=== PATIENT | female | born 1975 | race Asian ===

== ENCOUNTER 2018-11-17 06:12 | Day surgery (SDC) | payer SELFPAY ==
[2018-11-11 16:48] LABS: Absolute Lymphocytes (CBC) 3.1 K/uL (0.7-4.9); Basophils % 0.6 % (0-1.3); Hematocrit 42.3 % (36.0-45.0); Lymphocytes % 41.5 % (15.3-44.8); MPV 9.3 fL (7.6-11.3); RBC Red Blood Cell Count 5.31 M/uL (3.86-4.86)
[2018-11-11 16:49] LABS: Urine Appearance CLEAR; Urine Bilirubin NEGATIVE (NEG); Urine Blood NEGATIVE (NEG); Urine Color YELLOW; Urine Glucose 3+ (NEG); Urine Protein NEGATIVE (NEG); Urine Specific Gravity >=1.030 (1.005-1.030); Urine Urobilinogen 0.2 mg/dL (0.2-1.0)
[2018-11-11 16:51] LABS: Urine Microscopic Reflex NO UMIC
[2018-11-17] MEDS ORDERED: NA CHLORIDE 0.9% 1,000 ML ONE ×3 (06:37→08:30)
[2018-11-17] MEDS ORDERED: CEFAZOLIN/SWI 2gm 2 GM/20 ML SYR ONE (06:37)
[2018-11-17] MEDS ORDERED: SCOPOLAMINE HYDROBROMIDE PATCH TD ONE (06:37)
[2018-11-17] MEDS ORDERED: FENTANYL CITR 100 MCG/2 ML ONE ×2 (07:18→09:40)
[2018-11-17] MEDS ORDERED: PROPOFOL 200 MG/20 ML VIAL IV ONE (07:18)
[2018-11-17] MEDS ORDERED: ROCURONIUM 50 MG/5 ML VIAL IV ONE ×2 (07:18→08:48)
[2018-11-17] MEDS ORDERED: LIDOCAINE 2% MPF 5 ML VIAL ONE (07:19)
[2018-11-17] MEDS ORDERED: ONDANSETRON 4 MG/2 ML VIAL ONE (07:20)
[2018-11-17] MEDS ORDERED: MIDAZOLAM HCL 2 MG/2 ML INJ ONE (07:20)
[2018-11-17] MEDS ORDERED: Phenylephrine HCl 10 MG/ML 1 ML VIAL ONE (08:03)
[2018-11-17] MEDS ORDERED: EPHEDRINE SULF 50 MG/ML VIAL ONE (09:26)
[2018-11-17] MEDS ORDERED: KETOROLAC 30 MG/ML INJ ONE (10:11)
[2018-11-17] MEDS: NA CHLORIDE 0.9% 1,000 ML ONE ×2 (10:22→10:25)
[2018-11-17] MEDS ORDERED: GLYCOPYRROLATE 0.2 MG/ML SYR ONE (11:07)
[2018-11-17] MEDS ORDERED: NEOSTIGMINE 1 MG/ML -10 ML VIAL ONE (11:09)
[2018-11-17] MEDS: HYDROMORPHONE HCL 1 MG/ML INJ ONE ×2 (11:45→11:50)
[2018-11-17] MEDS ORDERED: IBUPROFEN 200 MG TAB PO ONE (13:00)
[2018-11-17] MEDS ORDERED: IBUPROFEN 400 MG TAB ONE (13:00)
== END 2018-11-17 14:20 | disposition home or self-care (01) ==
LOC: OR 06:12
PROVIDERS: ATTEND Obstetrics & Gynecology
PROC: 0UT24ZZ Resection of Bilateral Ovaries, Percutaneous Endoscopic Approach (ICD-10-PCS; 2018-11-17)
PROC: 0UT74ZZ Resection of Bilateral Fallopian Tubes, Percutaneous Endoscopic Approach (ICD-10-PCS; 2018-11-17)
PROC: 0UT94ZZ Resection of Uterus, Percutaneous Endoscopic Approach (ICD-10-PCS; principal; 2018-11-17 07:30)
DX: N85.02 Endometrial intraepithelial neoplasia [EIN] (principal); N83.02 Follicular cyst of left ovary; E11.9 Type 2 diabetes mellitus without complications; I10 Essential (primary) hypertension; E78.5 Hyperlipidemia, unspecified; K21.9 Gastro-esophageal reflux disease without esophagitis; Z79.899 Other long term (current) drug therapy
CPT/HCPCS: 36415; 81003; 81025; 82962; 85025; 86850; 86900; 86901; 88108; 88305; 88307; 88309; J0690; J1170; J2250; J2370; J2405; J2704; J2710; J3010; J7030